=== PATIENT | female | born 1960 | race Caucasian/White ===

== ENCOUNTER → 2016-05-25 | Outpatient (CLI) | payer OTHER ==
[2013-09-28 11:50] VITALS: BP 94/66
[~2016-05-25] MED LIST: LEVO50TA PO
--- NOTE | 2016-05-25 15:02 | KCIC ---
Two-view chest. Indication:Reason For StudyReason: COUGH, FEVER AND CHILLS, FATIGUE X'S 1 WEEKS INCREASING PAST COUPLE DAYS / Spl. Instructions: NON SMOKER / History: FINDINGS: There is a hiatal hernia. No consolidation or pleural effusion. No pneumothorax. Pulmonary vasculature is within normal limits. Heart size is normal. Impression: Hiatal hernia with no evidence for heart failure or pneumonia. Electronically signed by: Geoffrey Rhoades (May 25, 2016 15:00:40)
== END | disposition home or self-care (01) ==
LOC: KCIC 14:30
PROVIDERS: ATTEND Nurse Practitioner Family
DX: R05 Cough (principal); R50.9 Fever, unspecified; R53.83 Other fatigue
CPT/HCPCS: 71020

== ENCOUNTER → 2016-11-17 | Outpatient (CLI) | payer OTHER ==
[2013-09-28 11:50] VITALS: BP 94/66
--- NOTE | 2016-11-17 09:26 | KCIC ---
Bilateral digital screening mammograms: Reason for examination: Routine screening. Comparison is made to previous study dated 10/25/2014. The skin and nipples show no abnormalities. No abnormal axillary lymph nodes are seen. The breast parenchyma shows scattered fibroglandular density. (Breast density: Category B.) There are no dominant masses, suspicious calcifications or architectural distortions. Impression: No evidence of malignancy. Recommend routine screening. BI-RADS Category 1: Negative. "Our facility is accredited by the [employer] Mammography Program." This patient's information has been entered into a reminder system for the patient to be notified with the results of her examination and a target date for the next mammogram. Electronically signed by: Afua Cheung MD (11/17/2016 9:22 AM) [id number]
== END | disposition home or self-care (01) ==
LOC: KCIC MAMMO 08:32
PROVIDERS: ATTEND Family Medicine
DX: Z12.31 Encounter for screening mammogram for malignant neoplasm of breast (principal)
CPT/HCPCS: G0202; 77067

== ENCOUNTER → 2017-04-29 | Outpatient (CLI) | payer OTHER | END | disposition home or self-care (01) | LOC: KCIC 09:07 | DX: M25.562 Pain in left knee (principal); G89.29 Other chronic pain | CPT/HCPCS: 73560 ==

== ENCOUNTER → 2017-05-18 | Outpatient (CLI) | payer OTHER | END | disposition home or self-care (01) | LOC: KCIC MRI 08:32 | DX: S83.242A Other tear of medial meniscus, current injury, left knee, initial encounter (principal); S83.412A Sprain of medial collateral ligament of left knee, initial encounter; M94.262 Chondromalacia, left knee; M25.462 Effusion, left knee; M67.462 Ganglion, left knee; R60.0 Localized edema; X58.XXXA Exposure to other specified factors, initial encounter; Y93.89 Activity, other specified; Y92.89 Other specified places as the place of occurrence of the external cause; Y99.8 Other external cause status | CPT/HCPCS: 73721 ==